=== PATIENT | male | born 1975 | race Caucasian/White ===

== ENCOUNTER → 2020-04-21 14:55 | Outpatient (CLI) | payer BC, SELFPAY ==
[2020-04-21 13:55] VITALS: BMI 28.7
--- NOTE | 2020-04-21 15:00 | RAD_ITS ---
STUDY: X-RAY CHEST REASON FOR EXAM: Male, 45 years old. FELL TWO DAYS AGO AND LANDED ON LEFT SHOULDER TECHNIQUE: PA and lateral views of the chest. COMPARISON: None. FINDINGS: There are mild multiple bibasilar interstitial fibrotic changes of the lungs. There is no demonstrated pleural abnormality. Normal size heart. Normal mediastinum and trang. Normal visualized pulmonary arteries. Normal visualized aortic arch and descending thoracic aorta. There is a dextroscoliosis of the thoracic spine. Normal visualized ribs, clavicles, and shoulders. There is no demonstrated abnormality of the visualized soft tissue structures of the upper abdomen. RAD/Chest PA and Lateral IMPRESSION: No visualized acute process Electronically Signed: Andrew Choe MD at 16:39 EST , Service support ,
--- NOTE | 2020-04-21 15:00 | RAD_ITS ---
STUDY: X-RAY - LEFT SHOULDER REASON FOR EXAM: Male, 45 years old. FELL TWO DAYS AGO AND LANDED ON LEFT SHOULDER TECHNIQUE: 4 view(s) of the shoulder. COMPARISON: None. FINDINGS: Normal glenohumeral articulation. Normal acromioclavicular joint. Normal acromion. Normal humeral head and visualized proximal humerus. The soft tissue structures are unremarkable. There is no demonstrated fracture. Normal visualized pulmonary apex. RAD/Shoulder min 2 Views IMPRESSION: Normal x-ray examination of the shoulder. Electronically Signed: Andrew Choe MD at 16:39 EST , Service support ,
== END ==
PROVIDERS: PCP Internal Medicine; Visit Provider Physician Assistant
DX: R07.81 Pleurodynia (principal); S46.912A Strain of unspecified muscle, fascia and tendon at shoulder and upper arm level, left arm, initial encounter
CPT/HCPCS: 71046; 73030